=== PATIENT | female | born 1970 | race Caucasian/White ===

== ENCOUNTER 2016-06-30 13:30 | Outpatient (CLI) | payer OTHER ==
--- NOTE | 2016-06-30 16:40 | DIAGNOSTIC IMAGING REPORT ---
PROCEDURE: MR LOW EXT NONJOINT WO CON-RT INDICATION: RIGHT FOOT PAIN TECHNIQUE: Sagittal, axial, coronal, and axial oblique T1 and STIR sequences obtained through the foot. COMPARISON: None. FINDINGS: Osseous structures and articular surfaces: Normal bony alignment, cartilage surfaces, and marrow signal. No evidence of stress fracture. Ligaments: Questionable discontinuity of the spring ligament. Mild surrounding fluid. The deltoid ligaments and the lateral ligaments appear intact. Posterior intermalleolar ligament may be disrupted. Proximally, tibiofibular ligaments are intact. Tendons: Minor thickening and slight overlying edema involving the anterior tibial tendon. There is abnormal dorsal course of the tendon suggestive of inferior extensor retinacular avulsion. Mild tenosynovitis involving the flexor digitorum and flexor hallicis longus tendons distal to the medial malleolus. Minor short segment of tenosynovitis in the posterior tibial tendon just distal to the medial malleolus. Laterally, the tendons appear intact. Soft tissues, musculature, and fluid: There is a posterior subtalar joint effusion layering posteriorly and decompressing cranially measuring approximately 3.7 cm in craniocaudal dimension. There appears to be discontinuity in the posterior intermalleolar ligament. The musculature is normal in bulk and signal. Plantar fascia bands demonstrate very questionable intermediate signal at the origin of the central band. No suspicious soft tissue mass IMPRESSION: 1. Grade 1 injury of the anterior tibial tendon which follows an abnormal course suggestive of inferior extensor retinacular avulsion. 2. Mild tenosynovitis involving the medial tendons. 3. Questionable discontinuity of the spring ligament. Correlate clinically. 4. Posterior subtalar joint effusion and discontinuity of the intermalleolar ligament. 5. Minor intermediate signal at the origin of the central band of the plantar fascia. Correlate with any plantar fasciitis symptoms.
== END 2016-06-30 23:00 ==
LOC: MRI SRH 13:30
DX: M65.871 Other synovitis and tenosynovitis, right ankle and foot (principal); R93.7 Abnormal findings on diagnostic imaging of other parts of musculoskeletal system